=== PATIENT | female | born 1955 ===

== ENCOUNTER 2016-09-20 12:04 | Emergency (ER) | payer MEDICAID ==
[2016-09-20 12:13] VITALS: BP 150/81; PULSE 96; RESP 18; TEMP 98.1; O2SAT 100
--- NOTE | 2016-09-20 12:38 | C.PDOC ---
History Of Present Illness 61 year old female who presents to the ER for an evaluation of a puncture wound to the left knee area. Patient states she accidentally injured herself right below the left knee cap with a knife 2 weeks ago. Patient went to see her PMD who started her on amoxicillin for a week; she also was applying peroxide and bactroban cream, however, she states the wound looks redder. Denies fever, chills, weakness, or numbness. Time Seen by Provider: 09/20/16 12:24 Chief Complaint (Nursing): Abnormal Skin Integrity History Per: Patient History/Exam Limitations: no limitations Onset/Duration Of Symptoms: Days Current Symptoms Are (Timing): Still Present Location Of Injury: Left: Knee Quality Of Symptoms: Other (Wound) Recent travel outside of the [place]: No Past Medical History Reviewed: Historical Data, Nursing Documentation, Vital Signs Vital Signs: Last Vital Signs Temp 98.1 F 09/20/16 12:08 Pulse 96 H 09/20/16 12:08 Resp 18 09/20/16 12:08 BP 150/81 09/20/16 12:08 Pulse Ox 100 09/20/16 17:09 - Medical History PMH: Asthma, HTN Surgical History: Tonsillectomy Family History: States: Unknown Family Hx - Social History Hx Alcohol Use: No Hx Substance Use: No Review Of Systems Constitutional: Negative for: Fever, Chills Skin: Positive for: Other (Wound) Neurological: Negative for: Weakness, Numbness Physical Exam - Physical Exam Appears: Non-toxic, No Acute Distress Skin: Warm, Dry, Other (small area of redness, (-) drainage below left patella) Head: Atraumatic, Normacephalic Oral Mucosa: Moist Extremity: Normal ROM (x4), No Tenderness, No Deformity, No Swelling, Other ( Erythematous around punctate wound) Neurological/Psych: Oriented x3, Normal Speech, Normal Cognition ED Course And Treatment O2 Sat by Pulse Oximetry: 100 (Room air) Pulse Ox Interpretation: Normal - Other Rad No standard instances X-Ray: Interpreted by Me Interpretation: left Knee: no FB Progress Note: Left knee x-ray ordered. Bactrim administered. Reassessment Condition: Unchanged Disposition Counseled Patient/Family Regarding: Studies Performed, Diagnosis, Need For Followup, Rx Given - Disposition Referrals: Soto,Kate C, MD [Non-Staff] - Disposition: HOME/ ROUTINE Disposition Time: 13:20 Condition: STABLE Additional Instructions: Follow up with your PMD for further evaluation Prescriptions: Sulfamethoxazole/Trimethoprim [Bactrim DS 800 mg-160 mg] 1 tab PO BID #14 tab Instructions: Cellulitis (ED) Forms: [employer] (Indonesian) - POA Present On Arrival: None - Clinical Impression Clinical Impression: Skin irritation, Cellulitis - Scribe Statement The provider has reviewed the documentation as recorded by the Elibkavon Olivas All medical record entries made by the Mohsen were at my direction and personally dictated by me. I have reviewed the chart and agree that the record accurately reflects my personal performance of the history, physical exam, medical decision making, and the department course for this patient. I have also personally directed, reviewed, and agree with the discharge instructions and disposition.
[2016-09-20] MEDS ORDERED: Tmp-Smz 800 mg-160 mg DS Tab PO SCH (12:45)
[2016-09-20] MEDS ORDERED: Tmp-Smz 800 mg-160 mg DS Tab PO STA (12:49)
[2016-09-20] MEDS ORDERED: Tmp-Smz 800 mg-160 mg DS Tab ONE (13:11)
--- NOTE | 2016-09-20 18:50 | RAD ---
PROCEDURE: Left Knee Radiographs. HISTORY: Pain. COMPARISON: Comparison is made to 12/05/2013 FINDINGS: BONES: Normal. No fracture. JOINTS: Moderate osteoarthritic changes. JOINT EFFUSION: None. OTHER FINDINGS: None. IMPRESSION: Moderate osteoarthritic changes.
== END 2016-09-20 13:18 | disposition home or self-care (01) ==
LOC: C.ER 12:04
DX: L03.116 Cellulitis of left lower limb (principal); L98.8 Other specified disorders of the skin and subcutaneous tissue